=== PATIENT | female | born 1970 | race Caucasian/White ===

== ENCOUNTER 2016-11-05 23:43 | Emergency (ER) | payer SELFPAY ==
[~2016-11-05] VITALS: Ht 162.6 cm; Wt 69.8 kg
[~2016-11-05 23:43] MED LIST: CITA10TA13 PO; FERR-67 PO; FLUO20CA30 PO; FURO-154 PO; GABA-305 PO; GABA-338 PO; OMEP-122 PO; SPIR50TA PO
--- OUTSIDE RECORDS SUMMARY | 2016-11-05 23:48 | XMS REPORT | Continuity of Care Document ---
Author Author [facility] Organization [facility] Address Unknown Phone Unavailable Support Name Relationship Address Phone LANE RAMÍREZ MD Caregiver [address] [place] [address] [address] [place] [address] Unavailable MABLE TORRES DO Caregiver [address] [place] [address] Unavailable MIGDALIA BETANCOURT Next Of Kin [address] [place] [address] Insurance Providers Guarantor Leticia Betancourt Address [address] [place] [address] Email [email or web address] Payer Freddie Christensen Char Filter Tank Tender Head Correct Care Policy Number [id number] Subscriber's Name Leticia Betancourt Relationship 17 Self Advance Directives Directive Response Recorded Date/Time Ordered Resuscitation Status Full Code 01/05/16 3:12pm Resuscitation Documents on File No 01/07/16 6:36am DPOA for Healthcare Only No 01/07/16 6:36am Problems Active Problems Medical Problem Onset Date Status Cellulitis Unknown Acute Cellulitis Unknown Acute Cholelithiasis Unknown Acute Cholelithiasis Unknown Acute Exacerbation of Chronic Back Pain Unknown Acute Flank pain Unknown Acute Generalized edema Unknown Acute Otalgia of left ear Unknown Acute Otalgia of left ear Unknown Acute RUQ abd pain Unknown Acute Right knee pain Unknown Acute Medications Current Home Medications Medication Dose Units Route Directions Days Qty Instructions Start Date Citalopram Hydrobromide (Celexa) 10 Mg Tablet 3 Tab Oral Daily Ferrous Sulfate (Iron Supplement) 325 Mg Tablet 1 Tab Oral Give With Breakfast BEST WITH FOOD. 01/05/16 Fluoxetine Hcl (Prozac) 20 Mg Capsule 1 Cap Oral Bedtime 01/05/16 Furosemide (Lasix) 20 Mg Tablet 1 Tab Oral Daily 5 Tablet 10/05/14 Gabapentin 300 Mg Capsule 1 Cap Oral Daily 09/19/14 Gabapentin 600 Mg Tablet 1 Tab Oral Bedtime 09/19/14 Omeprazole 20 Mg Tablet. 20 Mg Oral Before Meals Twice A Day Take 1 tablet, by mouth, 2 times a day with meals. 01/05/16 Spironolactone (Aldactone) 50 Mg Tablet 1 Tab Oral Daily 30 Tablet 01/05/16 Past Home Medications Medication Directions Ordered Status Citalopram Hydrobromide (Celexa) 40 Mg Tablet, 1 Tab Oral Daily 09/29/14 Discontinued Citalopram Hydrobromide (Citalopram Hbr) 40 Mg Tablet, 1 Tab Oral Daily 09/19 Discontinued Doxycycline Hyclate 100 Mg Capsule, 100 Mg Oral Twice A Day 07/08/11 Discontinued Hydrocodone Bit/Acetaminophen (Lortab 5) 1 Tab Tablet, 1 Tab Oral As Needed 07/09/11 Discontinued None , 11/06/08 Discontinued Sulfamethoxazole/Trimethoprim (Bactrim Ds) 1 Tab Tablet, 1 Tab Oral Twice A Day 07/08/11 Discontinued Social History Social History Problem Response Recorded Date/Time Onset Date Status Chewing Tobacco Status No 01/25/2014 9:15pm Not Applicable Not Applicable Hx Substance Use No 01/07/2016 6:24am Not Applicable Not Applicable Hx Alcohol Use No 01/07/2016 7:16am Not Applicable Not Applicable Has the pt used tobacco in the last 12 months No 01/07/2016 6:24am Not Applicable Not Applicable Query Response Start Date Stop Date Smoking Status Current some day smoker Hospital Discharge Instructions No hospital discharge instructions. Plan of Care Discharge Date 01/07/16 8:51am Prescriptions See Medication Section Functional Status Query Response Date Recorded Ability to complete ADL's impeded by No change January 07, 2016 6:36am Allergies, Adverse Reactions, Alerts Allergen Type Severity Reaction Status Last Updated Amoxicillin Allergy Unknown HIVES Active 10/05/14 Meloxicam Allergy Unknown LEG CRAMPS Active 10/05/14 Immunizations Query Response on File Recorded Date/Time Hx Influenza Vaccination Y OCTOBER 2015 01/07/16 6:24am Hx Pneumococcal Vaccination No 01/07/16 6:24am Hx Influenza Vaccination Y OCTOBER 2015 01/07/16 6:24am Vital Signs Acute Vital Signs Vital Response Date/Time Temperature (Fahrenheit) 97.2 deg F (96.8 - 99.1) 01/07/2016 8:01am Temperature (Calculated Celsius) 36.42103 degrees C (36.0 - 37.3) 01/07/2016 8:01am Temperature Source Temporal 01/07/2016 8:01am Pulse Rate (adult) 70 bpm (60 - 100) 01/07/2016 8:40am Respiratory Rate 18 breaths/min (10 - 20) 01/07/2016 8:40am O2 Sat by Pulse Oximetry 98 % (90 - 100) 01/07/2016 8:40am Oxygen Delivery Method Room Air 01/07/2016 8:40am Blood Pressure 103/59 mm Hg 01/07/2016 8:40am Blood Pressure Source Automatic Cuff 01/07/2016 8:40am Height (Feet) 5 feet 01/07/2016 6:23am Height (Inches) 4.00 inches 01/07/2016 6:23am Weight (Kilograms) 74.500 kg 01/07/2016 6:23am Body Mass Index (BMI) 28.2 01/07/2016 6:23am Results Laboratory Results Test Name Result Units Flags Reference Collection Date/Time Result Date/ Time Comments White Blood Count 3.9 T/MM3 L 4.5-11.0 11/09/2015 11:11/09/2015 11: 21am Red Blood Count 4.35 M/MM3 4.00-5.20 11/09/2015 11:11/09/2015 11: 21am Hemoglobin 14.2 GM/DL 12-16 11/09/2015 11:11/09/2015 11:21am Hematocrit 41.9 % 36-46 11/09/2015 11:11/09/2015 11:21am Mean Corpuscular Volume 96.3 UM3 80-100 11/09/2015 11:11/09/2015 11:21am Mean Corpuscular Hemoglobin 32.6 UUG 26-34 11/09/2015 11:2015 11:21am Mean Corpuscular Hemoglobin Concent 33.9 GM/DL 31-37 11/09/2015 11:11/09/2015 11:21am RDW Standard Deviation 43.8 FL 36.9-50.2 11/09/2015 11:m 11/09/2015 11:21am Platelet Count 93 T/MM3 L 130-400 11/09/2015 11:17am 11/09/2015 11:21am Mean Platelet Volume 9.2 UM3 L 9.4-12.4 11/09/2015 11:11/09/2015 11 :21am Neutrophils (%) (Auto) 57.3 % 33-66 11/09/2015 11:11/09/2015 11: 21am Lymphocytes (%) (Auto) 32.3 % 23-45 11/09/2015 11:11/09/2015 11: 21am Monocytes (%) (Auto) 7.6 % 0-9.0 11/09/2015 11:11/09/2015 11:21am Eosinophils (%) (Auto) 2.5 % 0-4 11/09/2015 11:11/09/2015 11:21am Basophils (%) (Auto) 0.3 % 0-2 11/09/2015 11:11/09/2015 11:21am Immature Granulocyte % (Auto) 0.0 % 0.0-0.5 11/09/2015 11:2015 11:21am Absolute Neutrophils (auto) 2.3 T/MM3 1.8-7.7 11/09/2015 11:2015 11:21am Absolute Lymphocytes (auto) 1.3 T/MM3 1-4.8 11/09/2015 11:2015 11:21am Absolute Monocytes (auto) 0.3 T/MM3 0-0.8 11/09/2015 11:2015 11:21am Absolute Eosinophils (auto) 0.1 T/MM3 0-0.5 11/09/2015 11:2015 11:21am Absolute Basophils (auto) 0.0 T/MM3 0-0.2 11/09/2015 11:2015 11:21am Absolute Immature Granulocyte (auto 0.00 T/MM3 0.00-0.03 11/09/2015 11: 11/09/2015 11:21am Helicobacter pylori IgG Antibody 0.81 OD Ratio 0.00-1.09 11/09/2015 11: 11/11/2015 3:08pm >1.1 U/mL: Positive <0.9 U/mL: Negative Results of 0.9-1.1 OD Ratio are indeterminate. Patients should be retested in 2-4 weeks. Helicobacter IgG performed at [facility], [address] [place] [address] Editor Map Lencho [place], Procedures Procedure Status Date Provider(s) EGD (esophagogastroduodenoscopy) Completed 01/07/16 LANE RAMÍREZ MD Colonoscopy Completed 01/07/16 LANE RAMÍREZ MD Encounters Encounter Location Arrival/Admit Date Discharge/Depart Date Attending Provider Departed Surgical Day Care [facility] 01/07/16 6:02am 01/07/16 8: 51am LANE RAMÍREZ MD Registered Referred [facility] 11/09/15 11:05am ESTEBAN WASHINGTON MD
--- OUTSIDE RECORDS SUMMARY | 2016-11-05 23:48 | XMS REPORT | Continuity of Care Document ---
Author Author [facility] Organization [facility] Address Unknown Phone Unavailable Support Name Relationship Address Phone CLAU OSBORN MD Caregiver [address] [place] [address] Unavailable RAMO TEJEDA MD Caregiver [address] [place] [address] EUSEBIA ALEGRIA Next Of Kin [address] [place] [address] CP Insurance Providers Payer Name Policy Number Subscriber Name Relationship Self Pay Leticia Webb 17 Self Problems Medical Problems Problem Onset Date Status Exacerbation of Chronic Back Pain Unknown Active Flank pain Unknown Active RUQ abd pain Unknown Active Otalgia of left ear Unknown Active Right knee pain Unknown Active Otalgia of left ear Unknown Active Medications Medication Dose Route Sig Days/Qty Instructions Order Date Discontinued Date Status [None] 11/06/08 07/09/11 Discontinued Sulfamethoxazole/Trimethoprim 1 Tab PO TWICE A DAY 07/08/11 Discontinued Doxycycline Hyclate 100 Mg PO TWICE A DAY 07/08/11 08/23/11 Discontinued Hydrocodone Bit/Acetaminophen 1 Tab PO NEEDED 07/09/11 08/23/11 Discontinued [B12 Injection] MONTHLY 05/07/13 Active Ascorbic Acid 1,000 Mg PO DAILY 05/07/13 Active Black Cohosh Root Extract 160 Mg PO DAILY 05/07/13 Active Hydrocodone Bit/Acetaminophen 1-2 Tab PO EVERY 4-6 HOURS PRN PAIN 20 Qty 01/25/14 Active Cephalexin Monohydrate 500 Mg PO THREE TIMES A DAY 30 Qty 01/25/14 Active Social History Social History Problem Response Recorded Date/Time Smoking Status Current some day smoker 01/25/2014 9:15pm Chewing Tobacco Status No 01/25/2014 9:15pm Hx Substance Use No 01/25/2014 9:15pm Hx Alcohol Use No 01/25/2014 9:15pm Has the pt used tobacco in the last 12 months Yes 06/05/2013 7:59am Query Response Start Date Stop Date Smoking Status Current some day smoker Hospital Discharge Instructions No hospital discharge instructions. Plan of Care No plan of care. Functional Status Query Response Date Recorded Physical Hygiene Self January 25, 2014 9:15pm Dressing Self January 25, 2014 9:15pm Ambulation Self January 25, 2014 9:15pm Diet Self January 25, 2014 9:15pm Mental Status Alert Oriented January 25, 2014 9:15pm Physical Hygiene Self January 25, 2014 9:15pm Dressing Self January 25, 2014 9:15pm Ambulation Self January 25, 2014 9:15pm Diet Self January 25, 2014 9:15pm Allergies, Adverse Reactions, Alerts Allergen Type Severity Reaction Status Last Updated Amoxicillin Allergy Unknown HIVES Active 01/25/14 Meloxicam Allergy Unknown LEG CRAMPS Active 01/25/14 Immunizations Name Given Type Hx Influenza Vaccination No Historical Hx Pneumococcal Vaccination No Historical Hx Influenza Vaccination No Historical Vital Signs Acute Vital Signs Vital Response Date/Time Temperature (Fahrenheit) 97.6 deg F (96.8 - 99.1) Temperature (Calculated Celsius) 36.46422 degrees C (36.0 - 37.3) Pulse Rate (adult) 78 bpm (60 - 100) Respiratory Rate 20 breaths/min (10 - 20) O2 Sat by Pulse Oximetry 100 % (90 - 100) Blood Pressure 104/64 mm Hg Height 5 ft 4 in Weight 149 lb Body Mass Index 25.0 kg/m^2 Results Test Source Date Result Interp. Ref. Range Comments Activated Partial Thromboplast Time March 29, 2009 3:00am 28.0 SEC N 25-36 Alanine Aminotransferase (ALT/SGPT) August 18, 2013 7:35pm 67 U/L H 9- 52 Albumin August 18, 2013 7:35pm 4.7 G/DL N 3.5-5.0 Albumin/Globulin Ratio August 18, 2013 7:35pm 1.0 RATIO L 1.1-2.2 Alkaline Phosphatase August 18, 2013 7:35pm 101 U/L N 38-126 Anion Gap August 18, 2013 7:35pm 14 MEQ/L N 5-15 Aspartate Amino Transf (AST/SGOT) August 18, 2013 7:35pm 111 U/L H 14- 36 B-Type Natriuretic Peptide March 29, 2009 3:00am < 15 PG/ML L 15- 100 BUN/Creatinine Ratio August 18, 2013 7:35pm 15 RATIO N 6-26 Band Neutrophils # August 18, 2013 7:35pm 0.1 T/MM3 - Band Neutrophils % August 18, 2013 7:35pm 2.0 % N 0-6 Basophils # (Auto) January 20, 2009 11:15am 0.0 T/MM3 N 0-0.2 Basophils (%) (Auto) January 20, 2009 11:15am 0.2 % N 0-2 Blood Urea Nitrogen August 18, 2013 7:35pm 9.0 MG/DL N 7-17 Calcium Level August 18, 2013 7:35pm 9.2 MG/DL N 8.4-10.2 Calculated Osmolality August 18, 2013 7:35pm 273 MOSM/KG N 261-280 Carbon Dioxide Level August 18, 2013 7:35pm 25 MEQ/L N 22-30 Chloride Level August 18, 2013 7:35pm 104 MEQ/L N 98-107 Creatinine August 18, 2013 7:35pm 0.6 MG/DL L 0.7-1.2 Eosinophils # (Auto) January 20, 2009 11:15am 0.1 T/MM3 N 0-0.5 Eosinophils # (Manual) August 18, 2013 7:35pm 0.2 T/MM3 N 0-0.5 Eosinophils % (Manual) August 18, 2013 7:35pm 3.0 % N 0-4 Eosinophils (%) (Auto) January 20, 2009 11:15am 1.7 % N 0-4 Erythrocyte Sedimentation Rate January 20, 2009 11:15am 17 MM/HR N 0-20 Free Thyroxine January 20, 2009 11:15am 0.96 NG/DL N 0.78-2.19 Globulin August 18, 2013 7:35pm 4.5 G/DL H 2.4-3.6 Glucose Level August 18, 2013 7:35pm 77 MG/DL N 65-110 Hematocrit August 18, 2013 7:35pm 38.1 % N 36-46 Hemoglobin August 18, 2013 7:35pm 13.4 GM/DL N 12-16 Lymphocytes # (Auto) January 20, 2009 11:15am 1.3 T/MM3 N 1-4.8 Lymphocytes # (Manual) August 18, 2013 7:35pm 2.1 T/MM3 N 1-4.8 Lymphocytes % (Manual) August 18, 2013 7:35pm 41.0 % N 23-45 Lymphocytes (%) (Auto) January 20, 2009 11:15am 28.1 % N 23-45 Mean Corpuscular Hemoglobin August 18, 2013 7:35pm 34.4 UUG H 26-34 Mean Corpuscular Hemoglobin Concent August 18, 2013 7:35pm 35.2 GM/DL N 31-37 Mean Corpuscular Volume August 18, 2013 7:35pm 97.7 UM3 N 80-100 Mean Platelet Volume August 18, 2013 7:35pm 9.0 UM3 L 9.4-12.4 Monocytes # (Auto) January 20, 2009 11:15am 0.4 T/MM3 N 0-0.8 Monocytes # (Manual) August 18, 2013 7:35pm 0.1 T/MM3 N 0-0.8 Monocytes % (Manual) August 18, 2013 7:35pm 2.0 % N 0-9.0 Monocytes (%) (Auto) January 20, 2009 11:15am 8.6 % N 0-9.0 Neutrophils # (Auto) January 20, 2009 11:15am 2.9 T/MM3 N 1.8-7.7 Neutrophils # (Manual) August 18, 2013 7:35pm 2.6 T/MM3 N 1.8-7.7 Neutrophils % (Manual) August 18, 2013 7:35pm 52.0 % N 33-66 Neutrophils (%) (Auto) January 20, 2009 11:15am 61.4 % N 33-66 Platelet Count August 18, 2013 7:35pm 117 T/MM3 L 130-400 Potassium Level August 18, 2013 7:35pm 4.1 MEQ/L N 3.6-5 Prothromb Time International Ratio March 29, 2009 3:00am 0.95 N 0.79 -1.23 THERAPUTIC RANGE=2.00-3.00 FOR ANTI-THROMBOSIS THERAPUTIC RANGE=2.50- 3.50 FOR IMPLANTED VALVE RDW Standard Deviation August 18, 2013 7:35pm 44.9 FL N 36.9-50.2 Red Blood Count August 18, 2013 7:35pm 3.90 M/MM3 L 4.00-5.20 Rheumatoid Factor January 20, 2009 11:15am 9 IU/ML N 0-11 Sodium Level August 18, 2013 7:35pm 143 MEQ/L N 134-144 Thyroid Stimulating Hormone (TSH) January 20, 2009 11:15am 1.50 MIU/ML N 0.47-4.68 Total Bilirubin August 18, 2013 7:35pm 0.80 MG/DL N 0.20-1.30 Total Protein August 18, 2013 7:35pm 9.2 G/DL H 6.3-8.2 Troponin I March 29, 2009 3:00am 0.008 ng/ml N 0-0.12 Urine Bacteria August 18, 2013 7:20pm Trace H - Has specimen been collected/obtained? Y Urine Bilirubin August 18, 2013 7:20pm Negative - Has specimen been collected/obtained? Y Urine Blood August 18, 2013 7:20pm 2+ H - Has specimen been collected/ obtained? Y Urine Collection Type August 18, 2013 7:20pm Cleancatch-midstream - Has specimen been collected/obtained? Y Urine Color August 18, 2013 7:20pm Yellow - Has specimen been collected/obtained? Y Urine Culture Indicated August 18, 2013 7:20pm Cult reflexed &setup - Has specimen been collected/obtained? Y Urine Glucose (UA) August 18, 2013 7:20pm Negative - Has specimen been collected/obtained? Y Urine Ketones August 18, 2013 7:20pm Negative - Has specimen been collected/obtained? Y Urine Leukocyte Esterase August 18, 2013 7:20pm Negative - Has specimen been collected/obtained? Y Urine Nitrite August 18, 2013 7:20pm Negative - Has specimen been collected/obtained? Y Urine Test August 18, 2013 7:20pm Negative - Has specimen been collected/obtained? Y Urine Protein August 18, 2013 7:20pm Negative - Has specimen been collected/obtained? Y Urine RBC August 18, 2013 7:20pm 10-20 /HPF H - Has specimen been collected/obtained? Y Urine Specific [place] August 18, 2013 7:20pm 1.015 - Has specimen been collected/obtained? Y Urine Squamous Epithelial Cells August 18, 2013 7:20pm 5-10 - Has specimen been collected/obtained? Y Urine Transitional Epithelial Cells August 18, 2013 7:20pm 1-3 /HPF - Has specimen been collected/obtained? Y Urine Turbidity August 18, 2013 7:20pm Sl cloudy - Has specimen been collected/obtained? Y Urine Urobilinogen August 18, 2013 7:20pm 0.2 EU/DL - Has specimen been collected/obtained? Y Urine WBC August 18, 2013 7:20pm 1-3 /HPF - Has specimen been collected/obtained? Y Urine pH August 18, 2013 7:20pm 6.5 - Has specimen been collected/ obtained? Y White Blood Count August 18, 2013 7:35pm 5.0 T/MM3 N 4.5-11.0 Lab Scanned Report January 25, 2009 4:16pm [facility] [id number] - EKG March 29, 2009 2:44am Complete - Anti-Nuclear Antibody (LAB) January 20, 2009 11:15am Sent out - Glomerular Filtration Rate Calc August 18, 2013 7:35pm 109 - Urine Culture Urine, Clean Catch-Midstream August 18, 2013 8:16pm Gram Positive Davian Gram Stain Abscess July 08, 2011 11:30pm Procedures No known history of procedures. Encounters Encounter Location Date/Time Departed Emergency Room [facility] 01/25/14 8:28pm Recent Diagnosis
--- OUTSIDE RECORDS SUMMARY | 2016-11-05 23:49 | XMS REPORT | Continuity of Care Document ---
Author Author [facility] Organization [facility] Address Unknown Phone Unavailable Support Name Relationship Address Phone LANE RAMÍREZ MD Caregiver [facility] [address] [place] [phone] PIA KWON MD Caregiver [address] [place] [address] [place] [phone] MABLE TORRES DO Caregiver [address] [place] [address] [phone] MIGDALIA BETANCOURT Next Of Kin [address] [place] [address] Insurance Providers Payer Name Policy Number Subscriber Name Relationship Freddie Noble [employer] [id number] Leticia Betancourt 17 Self Problems Medical Problems Problem Onset Date Status Exacerbation of Chronic Back Pain Unknown Active Flank pain Unknown Active RUQ abd pain Unknown Active Otalgia of left ear Unknown Active Right knee pain Unknown Active Otalgia of left ear Unknown Active Cholelithiasis Unknown Active Cholelithiasis Unknown Active Cellulitis Unknown Active Generalized edema Unknown Active Cellulitis Unknown Active Medications Medication Dose Route Sig Days/Qty Instructions Order Date Discontinued Date Status [None] 11/06/08 07/09/11 Discontinued Sulfamethoxazole/Trimethoprim 1 Tab PO TWICE A DAY 07/08/11 Discontinued Doxycycline Hyclate 100 Mg PO TWICE A DAY 07/08/11 08/23/11 Discontinued Hydrocodone Bit/Acetaminophen 1 Tab PO NEEDED 07/09/11 08/23/11 Discontinued Black Cohosh Root Extract 160 Mg PO DAILY 05/07/13 Active Citalopram Hydrobromide 1 Tab PO DAILY 09/19/14 10/05/14 Discontinued Docusate Sodium 1 Cap PO DAILY 09/19/14 Active Gabapentin 1 Cap PO DAILY 09/19/14 Active Psyllium Husk (with Sugar) 09/19/14 Active Gabapentin 1 Tab PO BEDTIME 09/19/14 Active Simvastatin 20 Mg PO BEDTIME Take 1 tablet, by mouth, 1 time a day (at BEDTIME). 09/19/14 Active Citalopram Hydrobromide 1 Tab PO DAILY 09/29/14 Active Methylphenidate HCl 30 Mg PO TWICE A DAY 09/29/14 Active Cephalexin 500 Mg PO THREE TIMES A DAY 30 Qty 10/05/14 Active Furosemide 1 Tab PO DAILY 5 Qty 10/05/14 Active Potassium Chloride 10 Meq PO GIVE WITH BREAKFAST 5 Qty 10/05/14 Active Social History Social History Problem Response Recorded Date/Time Chewing Tobacco Status No 01/25/2014 9:15pm Hx Substance Use No 10/05/2014 4:56pm Hx Alcohol Use No 10/05/2014 4:56pm Has the pt used tobacco in the last 12 months Yes 09/29/2014 8:09am Query Response Start Date Stop Date Smoking Status Current some day smoker Hospital Discharge Instructions No hospital discharge instructions. Plan of Care No plan of care. Functional Status Query Response Date Recorded Physical Hygiene Self October 05, 2014 4:56pm Disabilities None October 05, 2014 4:56pm Devices Used None October 05, 2014 4:56pm Dressing Self October 05, 2014 4:56pm Ambulation Self January 25, 2014 9:15pm Diet Self October 05, 2014 4:56pm Mental Status Alert Oriented January 25, 2014 9:15pm Disabilities None October 05, 2014 4:56pm Devices Used None October 05, 2014 4:56pm Physical Hygiene Self October 05, 2014 4:56pm Dressing Self October 05, 2014 4:56pm Ambulation Self January 25, 2014 9:15pm Diet Self October 05, 2014 4:56pm Allergies, Adverse Reactions, Alerts Allergen Type Severity Reaction Status Last Updated Amoxicillin Allergy Unknown HIVES Active 10/05/14 Meloxicam Allergy Unknown LEG CRAMPS Active 10/05/14 Immunizations Name Given Type Hx Influenza Vaccination No Historical Hx Pneumococcal Vaccination No Historical Hx Influenza Vaccination No Historical Vital Signs Acute Vital Signs Vital Response Date/Time Temperature (Fahrenheit) 98.1 deg F (96.8 - 99.1) Temperature (Calculated Celsius) 36.09871 degrees C (36.0 - 37.3) Pulse Rate (adult) 96 bpm (60 - 100) Respiratory Rate 20 breaths/min (10 - 20) O2 Sat by Pulse Oximetry 97 % (90 - 100) Blood Pressure 136/74 mm Hg Height 5 ft 4.5 in Weight 173 lb Body Mass Index 29.0 kg/m^2 Results Test Source Date Result Interp. Ref. Range Comments Activated Partial Thromboplast Time March 29, 2009 3:00am 28.0 SEC N 25-36 Alanine Aminotransferase (ALT/SGPT) October 05, 2014 5:09pm 54 U/L H 9-52 Albumin October 05, 2014 5:09pm 3.1 G/DL L 3.5-5.0 Albumin/Globulin Ratio October 05, 2014 5:09pm 0.8 RATIO L 1.1-2.2 Alkaline Phosphatase October 05, 2014 5:09pm 53 U/L N 38-126 Amylase Level October 05, 2014 5:09pm 53 U/L N 30-110 Anion Gap October 05, 2014 5:09pm 9 MEQ/L N 5-15 Anti-Nuclear Antibody (LAB) January 20, 2009 11:15am Sent out - Aspartate Amino Transf (AST/SGOT) October 05, 2014 5:09pm 84 U/L H 14-36 B-Type Natriuretic Peptide March 29, 2009 3:00am < 15 PG/ML L 15- 100 BUN/Creatinine Ratio October 05, 2014 5:09pm 18 RATIO N 6-26 Band Neutrophils # September 29, 2014 7:36pm 0.0 T/MM3 - Band Neutrophils % September 29, 2014 7:36pm 0.0 % N 0-6 Basophils # (Auto) October 05, 2014 5:08pm 0.0 T/MM3 N 0-0.2 Basophils # (Manual) September 29, 2014 7:36pm 0.0 T/MM3 N 0-0.2 Basophils % (Manual) September 29, 2014 7:36pm 0.0 % N 0-2 Basophils (%) (Auto) October 05, 2014 5:08pm 0.4 % N 0-2 Blood Urea Nitrogen October 05, 2014 5:09pm 11.0 MG/DL N 7-17 Calcium Level October 05, 2014 5:09pm 8.3 MG/DL L 8.4-10.2 Calculated Osmolality October 05, 2014 5:09pm 264 MOSM/KG N 261-280 Carbon Dioxide Level October 05, 2014 5:09pm 26 MEQ/L N 22-30 Chemistry Specimen Hemolysis October 05, 2014 5:09pm 102 H 0-25 0-25: No Hemolysis.26-70: Slight Hemolysis - can falsely elevate K and Urine Protein. 71-285: Moderate Hemolysis - can falsely elevate K, Troponin I, CA 19-9, PTH, CSF GLucose, and Urine Protein, and can falsely decrease Phenytoin. 286-999: Gross Hemolysis - can falsely elevate K, Troponin I, CA 19-9, PTH, CSF Glucose, and Urine Protine, and can falsely decrease Phenytoin. Recommend specimen recollection. Chloride Level October 05, 2014 5:09pm 103 MEQ/L N 98-107 Creatinine October 05, 2014 5:09pm 0.6 MG/DL L 0.7-1.2 EKG March 29, 2009 2:44am Complete - Eosinophils # (Auto) October 05, 2014 5:08pm 0.2 T/MM3 N 0-0.5 Eosinophils # (Manual) September 29, 2014 7:36pm 0.0 T/MM3 N 0-0.5 Eosinophils % (Manual) September 29, 2014 7:36pm 0.0 % N 0-4 Eosinophils (%) (Auto) October 05, 2014 5:08pm 3.3 % N 0-4 Erythrocyte Sedimentation Rate January 20, 2009 11:15am 17 MM/HR N 0-20 Free Thyroxine January 20, 2009 11:15am 0.96 NG/DL N 0.78-2.19 Globulin October 05, 2014 5:09pm 3.9 G/DL H 2.4-3.6 Glomerular Filtration Rate Calc October 05, 2014 5:09pm 108 - Glucose Level October 05, 2014 5:09pm 82 MG/DL N 65-110 Hematocrit October 05, 2014 5:08pm 35.6 % L 36-46 Hemoglobin October 05, 2014 5:08pm 12.4 GM/DL N 12-16 Hepatitis A IgM Antibody September 22, 2014 4:27pm Negative - Hepatitis B Core IgM Antibody September 22, 2014 4:27pm Negative - Hepatitis B Surface Antigen September 22, 2014 4:27pm Negative - Hepatitis C Antibody September 22, 2014 4:27pm Positive - Icterus Index October 05, 2014 5:09pm < 2 0-7 Immature Granulocyte # (Auto) October 05, 2014 5:08pm 0.01 T/MM3 N 0.00- 0.03 Immature Granulocyte % (Auto) October 05, 2014 5:08pm 0.2 % N 0.0-0.5 Lab Scanned Report September 22, 2014 8:47pm LAB TEST FORM REQUEST - Lipase October 05, 2014 5:09pm 53 U/L N 23-300 Lymphocytes # (Auto) October 05, 2014 5:08pm 1.8 T/MM3 N 1-4.8 Lymphocytes # (Manual) September 29, 2014 7:36pm 1.1 T/MM3 N 1-4.8 Lymphocytes % (Manual) September 29, 2014 7:36pm 33.0 % N 23-45 Lymphocytes (%) (Auto) October 05, 2014 5:08pm 38.9 % N 23-45 Mean Corpuscular Hemoglobin October 05, 2014 5:08pm 33.2 UUG N 26-34 Mean Corpuscular Hemoglobin Concent October 05, 2014 5:08pm 34.8 GM/DL N 31-37 Mean Corpuscular Volume October 05, 2014 5:08pm 95.2 UM3 N 80-100 Mean Platelet Volume October 05, 2014 5:08pm 8.8 UM3 L 9.4-12.4 Monocytes # (Auto) October 05, 2014 5:08pm 0.6 T/MM3 N 0-0.8 Monocytes # (Manual) September 29, 2014 7:36pm 0.0 T/MM3 N 0-0.8 Monocytes % (Manual) September 29, 2014 7:36pm 1.0 % N 0-9.0 Monocytes (%) (Auto) October 05, 2014 5:08pm 13.2 % H 0-9.0 Neutrophils # (Auto) October 05, 2014 5:08pm 2.0 T/MM3 N 1.8-7.7 Neutrophils # (Manual) September 29, 2014 7:36pm 2.2 T/MM3 N 1.8-7.7 Neutrophils % (Manual) September 29, 2014 7:36pm 66.0 % N 33-66 Neutrophils (%) (Auto) October 05, 2014 5:08pm 44.0 % N 33-66 Nucleated Red Blood Cells September 29, 2014 10:31am 1 - Platelet Count October 05, 2014 5:08pm 140 T/MM3 N 130-400 Potassium Level October 05, 2014 5:09pm 4.2 MEQ/L N 3.6-5 Procalcitonin October 05, 2014 5:09pm < 0.05 NG/ML - PCT </=0.5 ng/mL - sepsis not likely;PCT >0.5 and </=2 ng/mL - sepsis possible; PCT >2 ng/mL - sepsis likely; PCT >/=10 ng/mL - systemic inflammatory response - sepsis or septic shock highly indicated. Prothromb Time International Ratio September 29, 2014 10:31am 1.13 H 0.81- 1.09 THERAPUTIC RANGE=2.00-3.00 FOR ANTI-THROMBOSIS THERAPUTIC RANGE=2.50- 3.50 FOR IMPLANTED VALVE RDW Standard Deviation October 05, 2014 5:08pm 44.7 FL N 36.9-50.2 Red Blood Count October 05, 2014 5:08pm 3.74 M/MM3 L 4.00-5.20 Red Cell Morphology Comment September 29, 2014 7:36pm Normal - Rheumatoid Factor January 20, 2009 11:15am 9 IU/ML N 0-11 Sodium Level October 05, 2014 5:09pm 138 MEQ/L N 134-144 Thyroid Stimulating Hormone (TSH) January 20, 2009 11:15am 1.50 MIU/ML N 0.47-4.68 Total Bilirubin October 05, 2014 5:09pm 1.40 MG/DL H 0.20-1.30 Total Protein October 05, 2014 5:09pm 7.0 G/DL N 6.3-8.2 Troponin I March 29, 2009 3:00am 0.008 ng/ml N 0-0.12 Turbidity October 05, 2014 5:09pm < 20 0-20 Urinalysis Comment October 05, 2014 7:12pm Microscopic not ind. - Has specimen been collected/obtained? Y Urine Bacteria August 18, 2013 7:20pm Trace H - Has specimen been collected/obtained? Y Urine Bilirubin October 05, 2014 7:12pm Negative - Has specimen been collected/obtained? Y Urine Blood October 05, 2014 7:12pm Negative - Has specimen been collected/obtained? Y Urine Collection Type October 05, 2014 7:12pm Cleancatch-midstream - Has specimen been collected/obtained? Y Urine Color October 05, 2014 7:12pm Yellow - Has specimen been collected/obtained? Y Urine Culture Indicated August 18, 2013 7:20pm Cult reflexed &setup - Has specimen been collected/obtained? Y Urine Glucose (UA) October 05, 2014 7:12pm Negative - Has specimen been collected/obtained? Y Urine Ketones October 05, 2014 7:12pm Negative - Has specimen been collected/obtained? Y Urine Leukocyte Esterase October 05, 2014 7:12pm Negative - Has specimen been collected/obtained? Y Urine Nitrite October 05, 2014 7:12pm Negative - Has specimen been collected/obtained? Y Urine Protein October 05, 2014 7:12pm Negative - Has specimen been collected/obtained? Y Urine RBC August 18, 2013 7:20pm 10-20 /HPF H - Has specimen been collected/obtained? Y Urine Specific [place] October 05, 2014 7:12pm 1.010 L - Has specimen been collected/obtained? Y Urine Squamous Epithelial Cells August 18, 2013 7:20pm 5-10 - Has specimen been collected/obtained? Y Urine Transitional Epithelial Cells August 18, 2013 7:20pm 1-3 /HPF - Has specimen been collected/obtained? Y Urine Turbidity October 05, 2014 7:12pm Clear - Has specimen been collected/obtained? Y Urine Urobilinogen October 05, 2014 7:12pm 0.2 EU/DL - Has specimen been collected/obtained? Y Urine WBC August 18, 2013 7:20pm 1-3 /HPF - Has specimen been collected/obtained? Y Urine pH October 05, 2014 7:12pm 7.0 - Has specimen been collected/ obtained? Y Venous Blood Lactate October 05, 2014 5:08pm 1.0 MMOL/L N 0.6-2.2 White Blood Count October 05, 2014 5:08pm 4.6 T/MM3 N 4.5-11.0 Gram Stain Abscess July 08, 2011 11:30pm Urine Culture Urine, Clean Catch-Midstream August 18, 2013 8:16pm Gram Positive Davian Name: LETICIA BETANCOURT Unit #: [id number] : 1970 Sex: F Loc / Svc: ED DOS: 09/19/14 Signed Report #: [id number] DIAGNOSTIC IMAGING REPORT TYPE OF EXAM: US GALLBLADDER Dictated By: EDGAR THOMASON MD Indication: ITS.REASON: RUQ pain / elevated LFTS US GALLBLADDER: Comparison: August 19, 2013 Findings: Hepatic parenchyma is homogeneous without evidence for focal mass. The gallbladder is abnormal with shadowing gallstones and wall thickening up to 5 to 6 mm. Sonographic Pro sign was positive. Both the intra and extrahepatic biliary system are of normal caliber with the common duct measuring 4 mm in dimension. Visualized portions of the head and body of the pancreas are unremarkable. The right kidney is present without collecting system dilatation. The right kidney measures 10.2 cm in length. Impression: Acute cholecystitis. Surgical consultation is recommended. There is a preliminary report by [email or web address]. . Procedures Procedure Status Date Provider(s) ECHO EXAM OF ABDOMEN completed 09/19/14 COMPREHEN METABOLIC PANEL completed 09/19/14 URINALYSIS AUTO W/O SCOPE completed 09/19/14 URINE TEST completed 09/19/14 ASSAY OF AMYLASE completed 09/19/14 ASSAY OF LIPASE completed 09/19/14 COMPLETE CBC W/AUTO DIFF WBC completed 09/19/14 HYDRATE IV INFUSION ADD-ON completed 09/19/14 THER/PROPH/DIAG INJ IV PUSH completed 09/19/14 EMERGENCY DEPT VISIT completed 09/19/14 [id number]"INJECTION, KETOROLAC TROMETHAMINE, PER 15 MG" completed 09/19/14 [id number]"INFUSION, NORMAL SALINE SOLUTION , 1000 CC" completed 09/19/14 ROUTINE VENIPUNCTURE completed 09/22/14 ACUTE HEPATITIS PANEL completed 09/22/14 Robot-assisted cholecystectomy completed 09/29/14 LANE RAMÍREZ MD Encounters Encounter Location Date/Time Registered Emergency Room [facility] 10/05/14 2:54pm Registered Clinic [facility] 09/22/14 4:17pm Departed Emergency Room [facility] 09/19/14 3:36pm Recent Diagnosis
--- OUTSIDE RECORDS SUMMARY | 2016-11-05 23:49 | XMS REPORT | Continuity of Care Document ---
Author Author [facility] Organization [facility] Address Unknown Phone Unavailable Support Name Relationship Address Phone LANE RAMÍREZ MD Caregiver [facility] [address] [place] [address] , [address] [place] [phone] MABLE TORRES DO Caregiver [address] [place] [phone] SERAFIN, SON [place] [address] CP Insurance Providers Payer Name Policy Number Subscriber Name Relationship Freddie Noble Correct [employer] [id number] Leticia Betancourt 17 Self Advance Directives Directive Response Recorded Date/Time Ordered Resuscitation Status Full Code 09/28/14 4:48pm Resuscitation Documents on File No 09/28/14 11:57am Problems Medical Problems Problem Onset Date Status Exacerbation of Chronic Back Pain Unknown Active Flank pain Unknown Active RUQ abd pain Unknown Active Otalgia of left ear Unknown Active Right knee pain Unknown Active Otalgia of left ear Unknown Active Cholelithiasis Unknown Active Cholelithiasis Unknown Active Medications Medication Dose Route Sig [...] Citalopram Hydrobromide 1 Tab PO DAILY 09/19/14 Active Docusate Sodium 1 Cap PO DAILY 09/19/14 [...] Mg PO TWICE A DAY 09/29/14 Active Social History Social History Problem Response Recorded Date/Time Chewing Tobacco Status No 01/25/2014 9:15pm Hx Substance Use No 09/29/2014 8:09am Hx Alcohol Use No 09/29/2014 8:09am Has the pt used tobacco in the last 12 months Yes 09/29/2014 8:09am Query Response Start Date Stop Date Smoking Status Current some day smoker Hospital Discharge Instructions No hospital discharge instructions. Plan of Care No plan of care. Functional Status Query Response Date Recorded Physical Hygiene Self September 19, 2014 3:40pm Ambulation Self January 25, 2014 9:15pm Mental Status Alert Oriented January 25, 2014 9:15pm Physical Hygiene Self September 19, 2014 3:40pm Ambulation Self January 25, 2014 9:15pm Allergies, Adverse Reactions, Alerts Allergen Type Severity Reaction Status Last Updated Amoxicillin Allergy Unknown HIVES Active 09/19/14 Meloxicam Allergy Unknown LEG CRAMPS Active 09/19/14 Immunizations Name Given Type Hx Influenza Vaccination No Historical Hx Pneumococcal Vaccination No Historical Hx Influenza Vaccination No Historical Vital Signs Acute Vital Signs Vital Response Date/Time Temperature (Fahrenheit) 96.7 deg F (96.8 - 99.1) Temperature (Calculated Celsius) 35.91571 degrees C (36.0 - 37.3) Pulse Rate (adult) 63 bpm (60 - 100) Respiratory Rate 16 breaths/min (10 - 20) O2 Sat by Pulse Oximetry 93 % (90 - 100) Oxygen Delivery Method Room Air Blood Pressure 109/56 mm Hg Blood Pressure Source Automatic Cuff Height 5 ft 4.5 in Weight 163 lb Body Mass Index 27.0 kg/m^2 Results Test Source Date Result Interp. Ref. Range Comments Activated Partial Thromboplast Time March 29, 2009 3:00am 28.0 SEC N 25-36 Alanine Aminotransferase (ALT/SGPT) September 19, 2014 4:06pm 94 U/L H 9- 52 Albumin September 19, 2014 4:06pm 4.2 G/DL N 3.5-5.0 Albumin/Globulin Ratio September 19, 2014 4:06pm 0.8 RATIO L 1.1-2.2 Alkaline Phosphatase September 19, 2014 4:06pm 78 U/L N 38-126 Amylase Level September 19, 2014 4:06pm 130 U/L H 30-110 Anion Gap September 19, 2014 4:06pm 12 MEQ/L N 5-15 Anti-Nuclear Antibody (LAB) January 20, 2009 11:15am Sent out - Aspartate Amino Transf (AST/SGOT) September 19, 2014 4:06pm 130 U/L H 14- 36 B-Type Natriuretic Peptide March 29, 2009 3:00am < 15 PG/ML L 15- 100 BUN/Creatinine Ratio September 19, 2014 4:06pm 12 RATIO N 6-26 Band Neutrophils # September 29, 2014 7:36pm 0.0 T/MM3 - Band Neutrophils % September 29, 2014 7:36pm 0.0 % N 0-6 Basophils # (Auto) September 30, 2014 4:20am 0.0 T/MM3 N 0-0.2 Basophils # (Manual) September 29, 2014 7:36pm 0.0 T/MM3 N 0-0.2 Basophils % (Manual) September 29, 2014 7:36pm 0.0 % N 0-2 Basophils (%) (Auto) September 30, 2014 4:20am 0.0 % N 0-2 Blood Urea Nitrogen September 19, 2014 4:06pm 7.0 MG/DL N 7-17 Calcium Level September 19, 2014 4:06pm 9.3 MG/DL N 8.4-10.2 Calculated Osmolality September 19, 2014 4:06pm 274 MOSM/KG N 261-280 Carbon Dioxide Level September 19, 2014 4:06pm 28 MEQ/L N 22-30 Chemistry Specimen Hemolysis September 19, 2014 4:06pm < 15 0-25 0-25 : No Hemolysis.26-70: Slight Hemolysis - can falsely elevate K and Urine Protein. 71-285: Moderate Hemolysis - can falsely elevate K, Troponin I, CA 19-9, PTH, CSF GLucose, and Urine Protein, and can falsely decrease Phenytoin. 286-999: Gross Hemolysis - can falsely elevate K, Troponin I, CA 19-9, PTH, CSF Glucose, and Urine Protine, and can falsely decrease Phenytoin. Recommend specimen recollection. Chloride Level September 19, 2014 4:06pm 104 MEQ/L N 98-107 Creatinine September 19, 2014 4:06pm 0.6 MG/DL L 0.7-1.2 EKG March 29, 2009 2:44am Complete - Eosinophils # (Auto) September 30, 2014 4:20am 0.0 T/MM3 N 0-0.5 Eosinophils # (Manual) September 29, 2014 7:36pm 0.0 T/MM3 N 0-0.5 Eosinophils % (Manual) September 29, 2014 7:36pm 0.0 % N 0-4 Eosinophils (%) (Auto) September 30, 2014 4:20am 0.7 % N 0-4 Erythrocyte Sedimentation Rate January 20, 2009 11:15am 17 MM/HR N 0-20 Free Thyroxine January 20, 2009 11:15am 0.96 NG/DL N 0.78-2.19 Globulin September 19, 2014 4:06pm 5.0 G/DL H 2.4-3.6 Glomerular Filtration Rate Calc September 19, 2014 4:06pm 108 - Glucose Level September 19, 2014 4:06pm 86 MG/DL N 65-110 Hematocrit September 30, 2014 4:20am 34.2 % L 36-46 Hemoglobin September 30, 2014 4:20am 11.6 GM/DL L 12-16 Hepatitis A IgM Antibody September 22, 2014 4:27pm Negative - Hepatitis B Core IgM Antibody September 22, 2014 4:27pm Negative - Hepatitis B Surface Antigen September 22, 2014 4:27pm Negative - Hepatitis C Antibody September 22, 2014 4:27pm Positive - Icterus Index September 19, 2014 4:06pm < 2 0-7 Immature Granulocyte # (Auto) September 30, 2014 4:20am 0.00 T/MM3 N 0.00- 0.03 Immature Granulocyte % (Auto) September 30, 2014 4:20am 0.0 % N 0.0-0.5 Lab Scanned Report September 22, 2014 8:47pm LAB TEST FORM REQUEST - Lipase September 19, 2014 4:06pm 184 U/L N 23-300 Lymphocytes # (Auto) September 30, 2014 4:20am 1.7 T/MM3 N 1-4.8 Lymphocytes # (Manual) September 29, 2014 7:36pm 1.1 T/MM3 N 1-4.8 Lymphocytes % (Manual) September 29, 2014 7:36pm 33.0 % N 23-45 Lymphocytes (%) (Auto) September 30, 2014 4:20am 32.0 % N 23-45 Mean Corpuscular Hemoglobin September 30, 2014 4:20am 33.3 UUG N 26-34 Mean Corpuscular Hemoglobin Concent September 30, 2014 4:20am 33.9 GM/DL N 31-37 Mean Corpuscular Volume September 30, 2014 4:20am 98.3 UM3 N 80-100 Mean Platelet Volume September 30, 2014 4:20am 9.6 UM3 N 9.4-12.4 Monocytes # (Auto) September 30, 2014 4:20am 0.5 T/MM3 N 0-0.8 Monocytes # (Manual) September 29, 2014 7:36pm 0.0 T/MM3 N 0-0.8 Monocytes % (Manual) September 29, 2014 7:36pm 1.0 % N 0-9.0 Monocytes (%) (Auto) September 30, 2014 4:20am 9.7 % H 0-9.0 Neutrophils # (Auto) September 30, 2014 4:20am 3.1 T/MM3 N 1.8-7.7 Neutrophils # (Manual) September 29, 2014 7:36pm 2.2 T/MM3 N 1.8-7.7 Neutrophils % (Manual) September 29, 2014 7:36pm 66.0 % N 33-66 Neutrophils (%) (Auto) September 30, 2014 4:20am 57.6 % N 33-66 Nucleated Red Blood Cells September 29, 2014 10:31am 1 - Platelet Count September 30, 2014 4:20am 98 T/MM3 L 130-400 Potassium Level September 19, 2014 4:06pm 4.6 MEQ/L N 3.6-5 Prothromb Time International Ratio September 29, 2014 10:31am 1.13 H 0.81- 1.09 THERAPUTIC RANGE=2.00-3.00 FOR ANTI-THROMBOSIS THERAPUTIC RANGE=2.50- 3.50 FOR IMPLANTED VALVE RDW Standard Deviation September 30, 2014 4:20am 45.1 FL N 36.9-50.2 Red Blood Count September 30, 2014 4:20am 3.48 M/MM3 L 4.00-5.20 Red Cell Morphology Comment September 29, 2014 7:36pm Normal - Rheumatoid Factor January 20, 2009 11:15am 9 IU/ML N 0-11 Sodium Level September 19, 2014 4:06pm 144 MEQ/L N 134-144 Thyroid Stimulating Hormone (TSH) January 20, 2009 11:15am 1.50 MIU/ML N 0.47-4.68 Total Bilirubin September 19, 2014 4:06pm 0.60 MG/DL N 0.20-1.30 Total Protein September 19, 2014 4:06pm 9.2 G/DL H 6.3-8.2 Troponin I March 29, 2009 3:00am 0.008 ng/ml N 0-0.12 Turbidity September 19, 2014 4:06pm < 20 0-20 Urinalysis Comment September 19, 2014 3:49pm Microscopic not ind. - Has specimen been collected/obtained? Y Urine Bacteria August 18, 2013 7:20pm Trace H - Has specimen been collected/obtained? Y Urine Bilirubin September 19, 2014 3:49pm Negative - Has specimen been collected/obtained? Y Urine Blood September 19, 2014 3:49pm Negative - Has specimen been collected/obtained? Y Urine Collection Type September 19, 2014 3:49pm Cleancatch-midstream - Has specimen been collected/obtained? Y Urine Color September 19, 2014 3:49pm Yellow - Has specimen been collected/obtained? Y Urine Culture Indicated August 18, 2013 7:20pm Cult reflexed &setup - Has specimen been collected/obtained? Y Urine Glucose (UA) September 19, 2014 3:49pm Negative - Has specimen been collected/obtained? Y Urine Ketones September 19, 2014 3:49pm Negative - Has specimen been collected/obtained? Y Urine Leukocyte Esterase September 19, 2014 3:49pm Negative - Has specimen been collected/obtained? Y Urine Nitrite September 19, 2014 3:49pm Negative - Has specimen been collected/obtained? Y Urine Protein September 19, 2014 3:49pm Negative - Has specimen been collected/obtained? Y Urine RBC August 18, 2013 7:20pm 10-20 /HPF H - Has specimen been collected/obtained? Y Urine Specific [place] September 19, 2014 3:49pm <=1.005 L - Has specimen been collected/obtained? Y Urine Squamous Epithelial Cells August 18, 2013 7:20pm 5-10 - Has specimen been collected/obtained? Y Urine Transitional Epithelial Cells August 18, 2013 7:20pm 1-3 /HPF - Has specimen been collected/obtained? Y Urine Turbidity September 19, 2014 3:49pm Clear - Has specimen been collected/obtained? Y Urine Urobilinogen September 19, 2014 3:49pm 0.2 EU/DL - Has specimen been collected/obtained? Y Urine WBC August 18, 2013 7:20pm 1-3 /HPF - Has specimen been collected/obtained? Y Urine pH September 19, 2014 3:49pm 6.0 - Has specimen been collected/ obtained? Y White Blood Count September 30, 2014 4:20am 5.4 T/MM3 DN 4.5-11.0 Gram Stain Abscess July 08, 2011 11:30pm Urine Culture Urine, Clean Catch-Midstream August 18, 2013 8:16pm Gram Positive Davian Name: LETICIA BETANCOURT Unit #: [id number] : 1970 Sex: F Loc / Svc: ED DOS: 09/19/14 Signed Report #: [id number] DIAGNOSTIC IMAGING REPORT TYPE OF EXAM: US [...] recommended. There is a preliminary report by [employer]. . Procedures Procedure Status Date Provider(s) ECHO EXAM OF ABDOMEN completed 09/19/14 COMPREHEN METABOLIC PANEL completed 09/19/14 URINALYSIS AUTO W/O SCOPE completed 09/19/14 URINE TEST completed 09/19/14 ASSAY OF AMYLASE completed 09/19/14 ASSAY OF LIPASE completed 09/19/14 COMPLETE CBC W/AUTO DIFF WBC completed 09/19/14 HYDRATE IV INFUSION ADD-ON completed 09/19/14 THER/PROPH/DIAG INJ IV PUSH completed 09/19/14 EMERGENCY DEPT VISIT completed 09/19/14 [id number]"INJECTION, KETOROLAC TROMETHAMINE, PER 15 MG" completed 09/19/14627577"INFUSION, NORMAL SALINE SOLUTION , 1000 CC" completed 09/19/14 ROUTINE VENIPUNCTURE completed 09/22/14 ACUTE HEPATITIS PANEL completed 09/22/14 Robot-assisted cholecystectomy completed 09/29/14 LANE RAMÍREZ MD Encounters Encounter Location Date/Time Registered Clinic [facility] 09/22/14 4:17pm Departed Emergency Room [facility] 09/19/14 3:36pm
--- OUTSIDE RECORDS SUMMARY | 2016-11-05 23:49 | XMS REPORT | Continuity of Care Document ---
Author Author [facility] Organization [facility] Address Unknown Phone Unavailable Support Name Relationship Address Phone GIAAARON SANTAMARIA Caregiver [address] [place] [phone] RAMO TEJEDA MD Caregiver [address] [phone] MABLE TORRES DO Caregiver [address] [place] [address] [phone] JULIA RODRIGUEZ MD Caregiver [address] [place] [address] [place] [address] EUSEBIA ALEGRIA Next Of Kin [address] [place] [id number] CP Insurance Providers Payer Name Policy Number Subscriber Name Relationship Freddie [facility] Correct Care [id number] Leticia Betancourt 17 Self Advance Directives Directive Response Recorded Date/Time Advanced Directives Type None 09/19/14 3:40pm Problems Medical Problems Problem Onset Date Status [...] time a day (at BEDTIME). 09/19/14 Active Social History Social History Problem Response Recorded Date/Time Chewing Tobacco Status No 01/25/2014 9:15pm Hx Substance Use No 09/19/2014 3:40pm Hx Alcohol Use No 09/19/2014 3:40pm Has the pt used tobacco in the last 12 months Yes 06/05/2013 7:59am Query Response Start Date Stop Date Smoking Status Current some day smoker Hospital Discharge Instructions No hospital discharge instructions. Plan of Care No plan of care. Functional Status Query Response Date Recorded Physical Hygiene Self September 19, 2014 3:40pm Disabilities None September 19, 2014 3:40pm Devices Used None September 19, 2014 3:40pm Dressing Self September 19, 2014 3:40pm Ambulation Self January 25, 2014 9:15pm Diet Self September 19, 2014 3:40pm Mental Status Alert Oriented January 25, 2014 9:15pm Disabilities None September 19, 2014 3:40pm Devices Used None September 19, 2014 3:40pm Physical Hygiene Self September 19, 2014 3:40pm Dressing Self September 19, 2014 3:40pm Ambulation Self January 25, 2014 9:15pm Diet Self September 19, 2014 3:40pm Allergies, Adverse Reactions, Alerts Allergen Type Severity Reaction Status Last Updated Amoxicillin Allergy Unknown HIVES Active 09/19/14 Meloxicam Allergy Unknown LEG CRAMPS Active 09/19/14 Immunizations Name Given Type Hx Influenza Vaccination No Historical Hx Pneumococcal Vaccination No Historical Hx Influenza Vaccination No Historical Vital Signs Acute Vital Signs Vital Response Date/Time Temperature (Fahrenheit) 97.0 deg F (96.8 - 99.1) Temperature (Calculated Celsius) 36.89896 degrees C (36.0 - 37.3) Pulse Rate (adult) 76 bpm (60 - 100) Respiratory Rate 16 breaths/min (10 - 20) O2 Sat by Pulse Oximetry 98 % (90 - 100) Blood Pressure 133/73 mm Hg Height 5 ft 4 in Weight 155 lb Body Mass Index 26.0 kg/m^2 Results Test Source Date Result Interp. [...] 12 RATIO N 6-26 Band Neutrophils # August 18, 2013 7:35pm 0.1 T/MM3 - Band Neutrophils % August 18, 2013 7:35pm 2.0 % N 0-6 Basophils # (Auto) September 19, 2014 4:06pm 0.0 T/MM3 N 0-0.2 Basophils (%) (Auto) September 19, 2014 4:06pm 0.5 % N 0-2 Blood Urea Nitrogen September [...] 2:44am Complete - Eosinophils # (Auto) September 19, 2014 4:06pm 0.1 T/MM3 N 0-0.5 Eosinophils # (Manual) August 18, 2013 7:35pm 0.2 T/MM3 N 0-0.5 Eosinophils % (Manual) August 18, 2013 7:35pm 3.0 % N 0-4 Eosinophils (%) (Auto) September 19, 2014 4:06pm 3.6 % N 0-4 Erythrocyte Sedimentation Rate January 20, 2009 11:15am 17 MM/HR N 0-20 Free Thyroxine January 20, 2009 11:15am 0.96 NG/DL N 0.78-2.19 Globulin September 19, 2014 4:06pm 5.0 G/DL H 2.4-3.6 Glomerular Filtration Rate Calc September 19, 2014 4:06pm 108 - Glucose Level September 19, 2014 4:06pm 86 MG/DL N 65-110 Hematocrit September 19, 2014 4:06pm 39.6 % N 36-46 Hemoglobin September 19, 2014 4:06pm 13.5 GM/DL N 12-16 Icterus Index September 19, 2014 4:06pm < 2 0-7 Immature Granulocyte # (Auto) September 19, 2014 4:06pm 0.00 T/MM3 N 0.00 -0.03 Immature Granulocyte % (Auto) September 19, 2014 4:06pm 0.0 % N 0.0-0.5 Lab Scanned Report January 25, 2009 4:16pm REFERENCE LAB [id number] - Lipase September 19, 2014 4:06pm 184 U/L N 23-300 Lymphocytes # (Auto) September 19, 2014 4:06pm 1.5 T/MM3 N 1-4.8 Lymphocytes # (Manual) August 18, 2013 7:35pm 2.1 T/MM3 N 1-4.8 Lymphocytes % (Manual) August 18, 2013 7:35pm 41.0 % N 23-45 Lymphocytes (%) (Auto) September 19, 2014 4:06pm 38.6 % N 23-45 Mean Corpuscular Hemoglobin September 19, 2014 4:06pm 32.8 UUG N 26-34 Mean Corpuscular Hemoglobin Concent September 19, 2014 4:06pm 34.1 GM/DL N 31-37 Mean Corpuscular Volume September 19, 2014 4:06pm 96.4 UM3 N 80-100 Mean Platelet Volume September 19, 2014 4:06pm 9.3 UM3 L 9.4-12.4 Monocytes # (Auto) September 19, 2014 4:06pm 0.3 T/MM3 N 0-0.8 Monocytes # (Manual) August 18, 2013 7:35pm 0.1 T/MM3 N 0-0.8 Monocytes % (Manual) August 18, 2013 7:35pm 2.0 % N 0-9.0 Monocytes (%) (Auto) September 19, 2014 4:06pm 7.7 % N 0-9.0 Neutrophils # (Auto) September 19, 2014 4:06pm 1.9 T/MM3 N 1.8-7.7 Neutrophils # (Manual) August 18, 2013 7:35pm 2.6 T/MM3 N 1.8-7.7 Neutrophils % (Manual) August 18, 2013 7:35pm 52.0 % N 33-66 Neutrophils (%) (Auto) September 19, 2014 4:06pm 49.6 % N 33-66 Platelet Count September 19, 2014 4:06pm 83 T/MM3 L 130-400 Potassium Level September 19, 2014 4:06pm 4.6 MEQ/L N 3.6-5 Prothromb Time International Ratio March 29, 2009 3:00am 0.95 N 0.79 -1.23 THERAPUTIC RANGE=2.00-3.00 FOR ANTI-THROMBOSIS THERAPUTIC RANGE=2.50- 3.50 FOR IMPLANTED VALVE RDW Standard Deviation September 19, 2014 4:06pm 42.9 FL N 36.9-50.2 Red Blood Count September 19, 2014 4:06pm 4.11 M/MM3 N 4.00-5.20 Rheumatoid Factor January 20, 2009 11:15am [...] Has specimen been collected/obtained? Y Urine Specific [place] September 19, 2014 3:49pm <=1.005 L - [...] collected/ obtained? Y White Blood Count September 19, 2014 4:06pm 3.9 T/MM3 L 4.5-11.0 Gram Stain Abscess July 08, 2011 11:30pm Urine Culture Urine, Clean Catch-Midstream August 18, 2013 8:16pm Gram Positive Davian Procedures No known history of procedures. Encounters Encounter Location Date/Time Departed Emergency Room [facility] 09/19/14 3:36pm Recent Diagnosis
[2016-11-05 23:50] VITALS: Ht 162.6 cm; Wt 69.8 kg
[2016-11-06] MEDS ORDERED: KETOROLAC 60mg/2ml INJECTION IM ONE (00:15)
[2016-11-06] MEDS ORDERED: ORPHENADRINE 60mg/2ml INJECTION IM ONE (00:15)
--- NOTE | 2016-11-06 00:20 | ERPDOC ---
Departure Disposition Decision Date: Nov 06, 2016 Disposition Decision Time: 01:08 Disposition: 01 DISCHARGED HOME, SELF-CARE Impression Impression Impression: Primary Impression: Strain of muscle and tendon of back wall of thorax, initial encounter Severity: Severe Condition: Improved Seen By: Physician only Referrals: MABLE TORRES DO (Family) 1 Week Patient Instructions: Low Back Strain (ED), Thoracic Back Strain (ED) Problems/Meds/Labs Reviewed?: Yes Medications reviewed and manag: Yes Additional Instructions: You have strained the muscles along your spine, from your hips to your head. Heat, ibuprofen or naproxen, muscle relaxers, and gentle motion/stretching will all help with these symptoms. Take the muscle relaxers as discussed and follow up with your doctor for further evaluation and management. Follow up care ordered?: Yes Mental Status: Alert, Oriented Scripts Cyclobenzaprine HCl (Cyclobenzaprine HCl) 10 Mg Tablet 10 MG PO TID Y for MUSCLE SPASM, #40 TAB 0 Refills Prov: NOVEMBERWSELEY 11/06/16 HPI - Back Pain General Chief Complaint: Back Pain or Injury Stated Complaint: BACK PAIN Time Seen by Provider: 00:05 Source: patient Exam Limitations: no limitations HPI - Back Pain Initial Comments 46[facility]. Pt lifted/moved furniture this AM; pt is normally pretty sedentary. Throughout the course of the day, her whole back, along both sides of her spine, has begun to tighten up , from her sacrum to her occiput. Now pt has pain with flexion along her spine, as well as with rotation, lifting her arms, and flexing her hips. Pt has taken ibuprofen without significant relief. Occurred At: home Onset/Timing: Gradual, Getting worse Duration: 12-24 hrs Pain/Severity Scale: Now & Worst: 10/10 Severity/Quality: severe, dullness, sharpness Location: C-spine, T-spine, lumbar spine, paraspinous muscles Method of Injury/Context: prior injury, other Modifying Factors: IMPROVES WITH: immobilization, pain medication, WORSE WITH: jarring, movement Associated Sypmtoms: lower back pain, muscle spasms, DENIES: fever, loss of bladder control, loss of bowel control, numbness in legs/feet, sensory/motor loss, tingling in legs/feet, weakness Hx of Similar Symptoms: No Allergies: Coded Allergies: amoxicillin (Verified Allergy, Unknown, HIVES, 10/05/14) meloxicam (Verified Allergy, Unknown, LEG CRAMPS, 10/05/14) Past History Past Medical History GI: other Musculoskeletal: back pain Surgical History General: gallbladder, other Reproductive/: Family History Family PMH: FOUND: [place], diabetes, hypertension Vaccines Hx Influenza Vaccination: Yes (OCTOBER 2015) Hx Pneumococcal Vaccination: No Social History Does patient use chewing tobac: No Review of Systems Musculoskeletal General: pain, see HPI All other Systems All Other Systems: Reviewed and Negative Physical Exam General General Nourishment: well nourished, well developed, appears stated age, no acute distress, adult General Body Habitus: well groomed Vitals and Pain First Documented Vital Signs Date Time Temp Pulse Resp B/P Pulse Ox O2 Delivery O2 Flow Rate FiO2 11/05/16 23:50 97.7 76 18 120/67 100 Room Air Weight: Kilograms: 69.800 Height (feet): 5 Height (inches): 4.00 Triage Pain Scale: RN VS reviewed by Provider: Yes Musculoskeletal (brief) Musculoskeletal Brief: FOUND: spasm, tenderness, NOT FOUND: deformity, loss of motion Comments Spasm and tenderness within paraspinal muscles (ILS) from sacrum/innominate through occiput. Pain with flexion/rotation of any spinal segment. Integumentary (brief) Integumentary Brief: FOUND: pink, warm Neurologic (brief) Neurological Brief: FOUND: CN w/o gross def to obs, DTR 2/4 all extremities, gait w/o gross def to obs, motor-no gross deficits, sensory-no gross deficits, NOT FOUND: Babinski Supervisory Exam Head: atraumatic Eyes: PERRL Nares: no exudate Neck: trachea midline Chest: symmetric Abdomen: non-distended Psychological: alert, appropriate Differential Diagnoses Considering: Disc Herniation, Compression Fracture, Fracture, Lumbar Sprain, Lumbar Strain, Thoracic Sprain, Thoracic Strain Progress Results/Orders Orders Procedure Category Date Status Time Ketorolac (Toradol) PHA 11/06/16 Complete 00:15 Orphenadrine (Norflex) PHA 11/06/16 Complete 00:15 Lumbar Spine 2-3 Views RAD 11/06/16 Taken 00:05 Cyclobenzaprine PHA 11/06/16 Complete (Prepack) (Flexeril 01:15 Medications Current ED Medications Ketorolac Tromethamine (Toradol) 60 mg O ONCE IM Last administered on 00:16; Start 11/06/16 at 00:15; Stop 11/06/16 at 00:16; Status DC Orphenadrine Citrate (Norflex) 60 mg O ONCE IM Last administered on 11/06/16 00:14; Start 11/06/16 at 00:15; Stop 11/06/16 at 00:16; Status DC Cyclobenzaprine HCl (FLEXERIL (PrePack)) 1 pack O ONCE SENT HOME ; Start at 01:15; Stop 11/06/16 at 01:16; Status DC Progress Progress Markedly improved sx with IM norflex and NSAID. Discussed dx, prognosis, and tx of muscle strains with pt, who voiced understanding. Will d/c to home with appropriate meds and instructions for tx. F/u with PCM. Xray Xray : Xray: L-Spine Interpretation: Normal, Interpreted by WESLEY Baumann DO Nov 06, 2016 00:20
--- NOTE | 2016-11-06 00:25 | NUR ---
IMAGING PT TO IMAGING AT THIS TIME.
--- NOTE | 2016-11-06 00:40 | NUR ---
IMAGING PT RETURN FROM IMAGING AT THIS TIME.
--- OUTSIDE RECORDS SUMMARY | 2016-11-06 01:01 | XMS REPORT | Continuity of Care Document ---
Author Author [facility] Organization [facility] Address Unknown Phone Unavailable Support Name Relationship Address Phone CLAU OSBORN MD Caregiver [address] [place] [address] Unavailable RAMO TEJEDA MD Caregiver [address] [place] [address] EUSEBIA ALEGRIA Next Of Kin [address] [place] [address] CP Insurance Providers Payer Name Policy Number [...] F (96.8 - 99.1) Temperature (Calculated Celsius) 36.76662 degrees C (36.0 - 37.3) Pulse Rate [...] Has specimen been collected/obtained? Y Urine Specific [place] August 18, 2013 7:20pm 1.015 - Has [...] Report January 25, 2009 4:16pm REFERENCE LAB [id number] - EKG March 29, 2009 2:44am Complete - Anti-Nuclear Antibody (LAB) January 20, 2009 11:15am Sent out - Glomerular Filtration Rate Calc August 18, 2013 7:35pm 109 - Urine Culture Urine, Clean Catch-Midstream August 18, 2013 8:16pm Gram Positive Davian Gram Stain Abscess July 08, 2011 11:30pm Procedures No known history of procedures. Encounters Encounter Location Date/Time Departed Emergency Room [facility] 01/25/14 8:28pm Recent Diagnosis
--- OUTSIDE RECORDS SUMMARY | 2016-11-06 01:01 | XMS REPORT | Continuity of Care Document ---
Author Author [facility] Organization [facility] Address Unknown Phone Unavailable Support Name Relationship Address Phone LANE RAMÍREZ MD Caregiver [facility] [address] [place] [address] , [address] [place] [phone] MABLE TORRES DO Caregiver [address] [place] [phone] SERAFIN, SON [place] [address] CP Insurance Providers Payer Name Policy Number Subscriber Name Relationship Freddie Noble Correct Care [id number] Leticia Betancourt 17 Self Advance Directives Directive [...] F (96.8 - 99.1) Temperature (Calculated Celsius) 35.44012 degrees C (36.0 - 37.3) Pulse Rate [...] Has specimen been collected/obtained? Y Urine Specific [place] September 19, 2014 3:49pm <=1.005 L - [...] Positive Davian Name: LETICIA BETANCOURT Unit #: [id number] : 1970 Sex: F Loc / Svc: ED DOS: 09/19/14 Signed Report #: [id number] DIAGNOSTIC IMAGING REPORT TYPE OF EXAM: US [...] recommended. There is a preliminary report by [employer]. . Procedures Procedure Status Date Provider(s) ECHO EXAM OF ABDOMEN completed 09/19/14 COMPREHEN METABOLIC PANEL completed 09/19/14 URINALYSIS AUTO W/O SCOPE completed 09/19/14 URINE TEST completed 09/19/14 ASSAY OF AMYLASE completed 09/19/14 ASSAY OF LIPASE completed 09/19/14 COMPLETE CBC W/AUTO DIFF WBC completed 09/19/14 HYDRATE IV INFUSION ADD-ON completed 09/19/14 THER/PROPH/DIAG INJ IV PUSH completed 09/19/14 EMERGENCY DEPT VISIT completed 09/19/14 824170"INJECTION, KETOROLAC TROMETHAMINE, PER 15 MG" completed 09/19/14177691"INFUSION, NORMAL SALINE SOLUTION , 1000 CC" completed 09/19/14 ROUTINE VENIPUNCTURE completed 09/22/14 ACUTE HEPATITIS PANEL completed 09/22/14 Robot-assisted cholecystectomy completed 09/29/14 LANE RAMÍREZ MD Encounters Encounter Location Date/Time Registered Clinic [facility] 09/22/14 4:17pm Departed Emergency Room [facility] 09/19/14 3:36pm
--- OUTSIDE RECORDS SUMMARY | 2016-11-06 01:01 | XMS REPORT | Continuity of Care Document ---
Author Author [facility] Organization [facility] Address Unknown Phone Unavailable Support Name Relationship Address Phone GIAAARON SANTAMARIA Caregiver [address] [place] [phone] RAMO TEJEDA MD Caregiver [address] [place] [phone] MABLE TORRES DO Caregiver [address] [place] [address] [phone] JULIA RODRIGUEZ MD Caregiver [address] [place] [address] [place] [address] EUSEBIA ALEGRIA Next Of Kin [address] [place] [phone] CP Insurance Providers Payer Name Policy Number Subscriber Name Relationship Freddie [facility] Correct Care [id number] Leticia Betancourt 17 Self Advance Directives Directive [...] F (96.8 - 99.1) Temperature (Calculated Celsius) 36.61457 degrees C (36.0 - 37.3) Pulse Rate [...] Report January 25, 2009 4:16pm REFERENCE LAB [id number] - Lipase September 19, 2014 4:06pm 184 [...] Has specimen been collected/obtained? Y Urine Specific [place] September 19, 2014 3:49pm <=1.005 L - [...] Encounters Encounter Location Date/Time Departed Emergency Room [facility] 09/19/14 3:36pm Recent Diagnosis
--- OUTSIDE RECORDS SUMMARY | 2016-11-06 01:02 | XMS REPORT | Continuity of Care Document ---
Author Author [facility] Organization [facility] Address Unknown Phone Unavailable Support Name Relationship Address Phone LANE RAMÍREZ MD Caregiver [facility] [address] [place] [phone] PIA KWON MD Caregiver [address] [place] [address] [place] [phone] MABLE TORRES DO Caregiver [address] [place] [address] [phone] MIGDALIA BETANCOURT Next Of Kin [address] [place] [address] Insurance Providers Payer Name Policy Number Subscriber Name Relationship Freddie Noble Correct Care [id number] Leticia Betancourt 17 Self Problems Medical Problems [...] F (96.8 - 99.1) Temperature (Calculated Celsius) 36.01037 degrees C (36.0 - 37.3) Pulse Rate [...] Has specimen been collected/obtained? Y Urine Specific [place] October 05, 2014 7:12pm 1.010 L - [...] Positive Davian Name: LETICIA BETANCOURT Unit #: [id number] : 1970 Sex: F Loc / Svc: ED DOS: 09/19/14 Signed Report #: [id number] DIAGNOSTIC IMAGING REPORT TYPE OF EXAM: US [...] recommended. There is a preliminary report by [employer]. . Procedures Procedure Status Date Provider(s) ECHO EXAM OF ABDOMEN completed 09/19/14 COMPREHEN METABOLIC PANEL completed 09/19/14 URINALYSIS AUTO W/O SCOPE completed 09/19/14 URINE TEST completed 09/19/14 ASSAY OF AMYLASE completed 09/19/14 ASSAY OF LIPASE completed 09/19/14 COMPLETE CBC W/AUTO DIFF WBC completed 09/19/14 HYDRATE IV INFUSION ADD-ON completed 09/19/14 THER/PROPH/DIAG INJ IV PUSH completed 09/19/14 EMERGENCY DEPT VISIT completed 09/19/14 [id number]"INJECTION, KETOROLAC TROMETHAMINE, PER 15 MG" completed 09/19/14 190938"INFUSION, NORMAL SALINE SOLUTION , 1000 CC" completed 09/19/14 ROUTINE VENIPUNCTURE completed 09/22/14 ACUTE HEPATITIS PANEL completed 09/22/14 Robot-assisted cholecystectomy completed 09/29/14 LANE RAMÍREZ MD Encounters Encounter Location Date/Time Registered Emergency Room [facility] 10/05/14 2:54pm Registered Clinic [facility] 09/22/14 4:17pm Departed Emergency Room [facility] 09/19/14 3:36pm Recent Diagnosis
[2016-11-06] MEDS ORDERED: CYCL-375 PO (01:11)
[2016-11-06] MEDS ORDERED: CYCLOBENZAPRINE 10MG (PrePack) SENT HOME ONE (01:15)
[2016-11-06 01:23] VITALS: BP 109/68; PULSE 73; RESP 18; TEMP 97.7; O2SAT 98
--- NOTE | 2016-11-06 01:23 | NUR ---
DEPART PT GIVEN DI FOR LOW BACK STRAIN, THORACIC BACK STRAIN, FLEXERIL, F/U. PREPAK/RX PROVIDED FOR FLEXERIL. PT VERBALIZES UNDERSTANDING OF DI AND MEDS. QUESTIONS ASKED/ANSWERED - DENIES FURTHER QUESTIONS/NEEDS AT THIS TIME. PERSONAL BELONGINGS GATHERED. PT AMBULATED/ESCORTED TO ED EXIT - GAIT STABLE, NO SIGN OF DISTRESS AT THIS TIME.
--- NOTE | 2016-11-06 06:53 | DI ---
EXAM: LUMBAR SPINE 2-3 VIEWS LOCATION OF DICTATION: [facility] HISTORY: ITS.REASON: LBP COMPARISON: September 04, 2010 FINDINGS: There is left convexity curvature of the thoracolumbar spine. There is no evidence for subluxation. There are no acute fractures. There is mild disc space narrowing and endplate spurring demonstrated. The surrounding soft tissues are within normal limits. IMPRESSION: 1. Mild left convexed curvature of the thoracolumbar spine without subluxation or acute fracture. 2. Mild spondylosis worse in the lower lumbar spine. .
== END 2016-11-06 01:39 | disposition home or self-care (01) ==
LOC: ED 23:43
DX: S29.012A Strain of muscle and tendon of back wall of thorax, initial encounter (principal); X50.0XXA Overexertion from strenuous movement or load, initial encounter; Y93.89 Activity, other specified; Y92.009 Unspecified place in unspecified non-institutional (private) residence as the place of occurrence of the external cause; Y99.8 Other external cause status
CPT/HCPCS: 96372